=== PATIENT | female | born 1985 | race Caucasian/White ===

== ENCOUNTER 2019-04-09 22:15 | Emergency (ER) | payer BC ==
[2019-04-09] MEDS ORDERED: fentaNYL 100 MCG/2 ML SDV IM ONE (22:49)
--- NOTE | 2019-04-09 22:52 | EDM.PDOC ---
ED HPI GENERAL MEDICAL PROBLEM - General Chief Complaint: Abdominal Pain Stated Complaint: ACID REFLUX PAIN Time Seen by Provider: 04/09/19 22:43 Source of Information: Reports: Patient, RN Notes Reviewed History Limitations: Reports: No Limitations - History of Present Illness INITIAL COMMENTS - FREE TEXT/NARRATIVE: 33-year-old female presents emergency department a complaint of left upper quadrant pain, she states she had epigastric pain for the last year or so usually controlled with Carafate and omeprazole however this pain is a little different started earlier today is quite intense it is right underneath her rib cage on the left side. 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: Musculoskeletal History: Reports: Fracture, Other (See Below) Other Musculoskeletal History: right wrist fx Psychiatric History: Reports: Anxiety Dermatologic History: Reports: Psoriasis - Infectious Disease History Infectious Disease History: Reports: Chicken Pox - Past Surgical History GI Surgical History: Reports: EGD Female Surgical History: Reports: Section Social & Family History - Tobacco Use Smoking Status *Q: Never Smoker - Caffeine Use Caffeine Use: Reports: Coffee - Recreational Drug Use Recreational Drug Use: No ED ROS GENERAL - Review of Systems Review Of Systems: See Below Constitutional: Reports: No Symptoms HEENT: Reports: No Symptoms Respiratory: Reports: No Symptoms Cardiovascular: Reports: No Symptoms GI/Abdominal: Reports: Abdominal Pain, Flatus. Denies: Nausea, Vomiting : Reports: No Symptoms ED EXAM, GI/ABD - Physical Exam Exam: See Below Exam Limited By: No Limitations General Appearance: Alert, Mild Distress Respiratory/Chest: No Respiratory Distress, Lungs Clear, Normal Breath Sounds, No Accessory Muscle Use, Chest Non-Tender Cardiovascular: Regular Rate, Rhythm, No Murmur GI/Abdominal Exam: Normal Bowel Sounds, Soft, Non-Tender, No Organomegaly, No Distention, No Abnormal Bruit, No Mass Course - Vital Signs Last Recorded V/S: Last Vital Signs Temp 97.9 F 04/09/19 22:30 Pulse 65 04/09/19 22:30 Resp 16 04/09/19 22:30 BP 111/64 04/09/19 22:30 Pulse Ox 99 04/09/19 22:30 - Orders/Labs/Meds Orders: Active Orders 24 hr Category Date Time Status Abdomen 1V Upright [CR] Urgent Exams 04/09/19 22:47 Ordered UA W/MICROSCOPIC [URIN] Urgent Lab 04/09/19 22:47 Ordered Labs: Laboratory Tests 04/09/19 04/09/19 04/09/19 Range/Units 22:53 22:59 22:59 WBC 7.9 (4.5-11.0) K/uL RBC 4.74 (3.30-5.50) M/uL Hgb 14.1 (12.0-15.0) g/dL Hct 42.5 (36.0-48.0) % MCV 90 (80-98) fL MCH 30 (27-31) pg MCHC 33 (32-36) % Plt Count 201 (150-400) K/uL Neut % (Auto) 65 (36-66) % Lymph % (Auto) 25 (24-44) % Love % (Auto) 7 H (2-6) % Eos % (Auto) 3 (2-4) % Baso % (Auto) 1 (0-1) % Sodium 143 (140-148) mmol/L Potassium 3.5 L (3.6-5.2) mmol/L Chloride 107 (100-108) mmol/L Carbon Dioxide 25 (21-32) mmol/L Anion Gap 14.5 H (5.0-14.0) mmol/L BUN 16 (7-18) mg/dL Creatinine 0.9 (0.6-1.0) mg/dL Est Cr Clr Drug Dosing 74.35 mL/min Estimated GFR (MDRD) > 60 (>60) Glucose 91 (74-106) mg/dL Lactic Acid (0.4-2.0) mmol/L Calcium 8.9 (8.5-10.1) mg/dL Total Bilirubin 0.3 (0.2-1.0) mg/dL AST 17 (15-37) U/L ALT 35 (12-78) U/L Alkaline Phosphatase 63 (46-116) U/L Total Protein 7.1 (6.4-8.2) g/dL Albumin 4.0 (3.4-5.0) g/dL Globulin 3.1 (2.3-3.5) g/dL Albumin/Globulin Ratio 1.3 (1.2-2.2) Lipase 128 (73-393) U/L HCG, Qual Negative 04/09/19 Range/Units 22:59 WBC (4.5-11.0) K/uL RBC (3.30-5.50) M/uL Hgb (12.0-15.0) g/dL Hct (36.0-48.0) % MCV (80-98) fL MCH (27-31) pg MCHC (32-36) % Plt Count (150-400) K/uL Neut % (Auto) (36-66) % Lymph % (Auto) (24-44) % Love % (Auto) (2-6) % Eos % (Auto) (2-4) % Baso % (Auto) (0-1) % Sodium (140-148) mmol/L Potassium (3.6-5.2) mmol/L Chloride (100-108) mmol/L Carbon Dioxide (21-32) mmol/L Anion Gap (5.0-14.0) mmol/L BUN (7-18) mg/dL Creatinine (0.6-1.0) mg/dL Est Cr Clr Drug Dosing mL/min Estimated GFR (MDRD) (>60) Glucose (74-106) mg/dL Lactic Acid 1.0 (0.4-2.0) mmol/L Calcium (8.5-10.1) mg/dL Total Bilirubin (0.2-1.0) mg/dL AST (15-37) U/L ALT (12-78) U/L Alkaline Phosphatase (46-116) U/L Total Protein (6.4-8.2) g/dL Albumin (3.4-5.0) g/dL Globulin (2.3-3.5) g/dL Albumin/Globulin Ratio (1.2-2.2) Lipase (73-393) U/L HCG, Qual Meds: Medications Discontinued Medications Generic Name Dose Route Start Last Admin Trade Name Freq PRN Reason Stop Dose Admin Al Hydroxide/Mg Hydroxide 15 0 ml 04/09/19 23:00 04/09/19 23:28 ml/ Lidocaine HCl 15 ml PO 04/09/19 23:01 30 ml ONETIME ONE Administration Fentanyl 50 mcg 04/09/19 22:49 04/09/19 23:49 Sublimaze IM 04/09/19 22:50 50 mcg ONETIME ONE Administration Departure - Departure Time of Disposition: 00:16 Disposition: Home, Self-Care 01 Condition: Fair Clinical Impression: Functional constipation - Discharge Information Instructions: Constipation, Adult Referrals: Marco Antonio Rodgers MD [Primary Care Provider] - Forms: ED Department Discharge Additional Instructions: Try the colonoscopy prep with MiraLAX, please followup with your primary care provider in 3-5 days if not better, please call return to the emergency department with worsening of symptoms. Sepsis Event Note - Evaluation Sepsis Screening Result: No Definite Risk - Focused Exam Vital Signs: Vital Signs Temp Pulse Resp BP Pulse Ox 04/09/19 22:30 97.9 F 65 16 111/64 99 04/09/19 22:28 97.9 F 65 16 111/64 99 Date Exam was Performed: 04/10/19 Time Exam was Performed: 00:15 - My Orders Last 24 Hours: My Active Orders 04/09/19 22:47 Abdomen 1V Upright [CR] Urgent UA W/MICROSCOPIC [URIN] Urgent - Assessment/Plan Last 24 Hours: My Active Orders 04/09/19 22:47 Abdomen 1V Upright [CR] Urgent UA W/MICROSCOPIC [URIN] Urgent Plan: Assessment Acuity = acute Site and laterality = functional constipation Etiology = slow transit time Manifestations = none Location of injury = Home Lab values = CBC CMP unremarkable lipase is within normal limits plain film the abdomen does show a large amount of stool and gas Plan Plan is to do the colonoscopy prep with MiraLAX follow-up primary care 3 to 5 days if not better This note was dictated using [employer] voice recognition software please call with any questions on syntax or grammar.
[2019-04-09] MEDS ORDERED: Alum Hydrox/Mag Hydrox/Simeth 15 ML, Lidocaine 2% 15 ML PO ONE ×2 (23:00)
--- NOTE | 2019-04-11 10:10 | CR ---
Abdomen 1V Upright CLINICAL HISTORY: Abdominal pain FINDINGS: The bowel gas pattern is nonobstructive. No free air is seen. No abnormal masses are noted. There is moderate fecal retention. There is a punctate calcific density in the region of the lower pole of the right kidney. IMPRESSION: Moderate fecal retention Possible tiny right pole renal calcification .
== END 2019-04-10 00:29 | disposition home or self-care (01) ==
LOC: JP.ED 22:15
DX: K59.04 Chronic idiopathic constipation (principal); Z88.0 Allergy status to penicillin
CPT/HCPCS: 36415; 74018; 80053; 83605; 83690; 84703; 85025; 96372; 99284; A9270; J3010

== ENCOUNTER 2019-05-27 13:00 | Emergency (ER) | payer BC ==
[2019-05-27] MEDS ORDERED: Lidocaine/EPINEPHrine/Tetracaine Soln 5 ML Each TOP ONE (13:26)
[2019-05-27] MEDS ORDERED: Bacitracin Oint 1 GM U/D Packet TOP ONE (13:26)
--- NOTE | 2019-05-27 13:31 | EDM.PDOC ---
ED HPI GENERAL MEDICAL PROBLEM - General Chief Complaint: Laceration Stated Complaint: CUT L ARM/WRIST Time Seen by Provider: 05/27/19 13:20 Source of Information: Reports: Patient, Old Records, RN History Limitations: Reports: No Limitations - History of Present Illness INITIAL COMMENTS - FREE TEXT/NARRATIVE: 33 yo female here with a laceration to the anterior L wrist that occurred at home today. She was using a butter knife to scrape a butts that she was washing and it slipped lacerating her L wrist. She cleaned it up at home and then came for further evaluation and repair. She has a severe phobia of needles. She thinks her tetanus is UTD. Has venous oozing at home, no squirting of blood. 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: Musculoskeletal History: Reports: Fracture, Other (See Below) Other Musculoskeletal History: right wrist fx Psychiatric History: Reports: Anxiety Dermatologic History: Reports: Psoriasis - Infectious Disease History Infectious Disease History: Reports: Chicken Pox - Past Surgical History HEENT Surgical History: Reports: None Cardiovascular Surgical History: Reports: None GI Surgical History: Reports: EGD Female Surgical History: Reports: Section Musculoskeletal Surgical History: Reports: None Dermatological Surgical History: Reports: None Social & Family History - Family History Family Medical History: Noncontributory - Tobacco Use Smoking Status *Q: Never Smoker Second Hand Smoke Exposure: No - Caffeine Use Caffeine Use: Reports: Coffee - Recreational Drug Use Recreational Drug Use: No ED ROS GENERAL - Review of Systems Review Of Systems: See Below Constitutional: Reports: No Symptoms Skin: Reports: Wound (L anterior wrist) Neurological: Reports: No Symptoms Psychiatric: Reports: Anxiety ED EXAM, SKIN/RASH Exam: See Below Exam Limited By: No Limitations General Appearance: Alert, WD/WN, No Apparent Distress, Anxious Extremities: Normal Range of Motion, No Pedal Edema. No: Non-Tender, Pedal Edema, Limited Range of Motion, Increased Warmth Neurological: Alert, Oriented, CN II-XII Intact, Normal Cognition, No Motor/ Sensory Deficits Psychiatric: Anxious Skin: Warm, Dry, Normal Color, No Rash, Wound/Incision Location, Skin: Upper Extremity, Left Characteristics: Linear Associated features: Tenderness. No: Warmth, Swelling, Induration, Lymphangitis ED SKIN PROCEDURES - Laceration/Wound Repair Left Anterior Wrist Appearance: Subcutaneous, Linear Distal NVT: Neuro & Vascular Intact, No Tendon Injury Anesthetic Type: Topical (LET solution) Local Anesthesia - Lidocaine (Xylocaine): 1% Plain Local Anesthetic Volume: 2cc Skin Prep: Saline Saline Irrigation (cc's): 5 Exploration/Debridement/Repair: Wound Explored, Minimal Debridement Closed with: Sutures Lac/Wound length In cm: 2 Suture Size: 5-0 # of Sutures: 4 Suture Type: Nylon, Interrupted, Simple, Mattress Drain Placement: No Sterile Dressing Applied: Nurse Tetanus Status Addressed: Yes Complications: No Course - Vital Signs Last Recorded V/S: Last Vital Signs Temp 36.5 C 05/27/19 13:12 Pulse 77 05/27/19 13:12 Resp 20 05/27/19 13:12 BP 149/55 H 05/27/19 13:12 Pulse Ox 96 05/27/19 13:12 - Orders/Labs/Meds Meds: Medications Discontinued Medications Generic Name Dose Route Start Last Admin Trade Name Vishal PRN Reason Stop Dose Admin Alprazolam 0.25 mg 05/27/19 14:01 05/27/19 14:08 Xanax PO 05/27/19 14:02 0.25 mg NOW ONE Administration Bacitracin 1 dose 05/27/19 13:26 05/27/19 13:35 Bacitracin Oint 1 Gm TOP 05/27/19 13:27 1 dose ONETIME ONE Administration Lidocaine HCl 5 ml 05/27/19 14:24 Xylocaine-Mpf 1% INJECT 05/27/19 14:25 ONETIME ONE Lidocaine/Tetracaine 5 ml 05/27/19 13:26 05/27/19 13:34 Let Soln TOP 05/27/19 13:27 5 ml ONETIME ONE Administration Departure - Departure Time of Disposition: 14:50 Disposition: Home, Self-Care 01 Condition: Good Clinical Impression: Laceration of wrist, left Qualifiers: Encounter type: initial encounter Qualified Code(s): S61.512A - Laceration without foreign body of left wrist, initial encounter - Discharge Information *PRESCRIPTION DRUG MONITORING PROGRAM REVIEWED*: Not Applicable *COPY OF PRESCRIPTION DRUG MONITORING REPORT IN PATIENT MISAEL: Not Applicable Instructions: Laceration Care, Adult, [id number] Referrals: PCP,None [Primary Care Provider] - Forms: ED Department Discharge Additional Instructions: Clean wound twice daily with soap and water. Dry. Apply antibiotic ointment and a new dressing. Stitches out in 7 days with your provider, return or be seen in the clinic sooner for signs of infection. You may use acetaminophen as needed for pain relief. Keep wound clean for 3 days. Sepsis Event Note - Evaluation Sepsis Screening Result: No Definite Risk - Focused Exam Vital Signs: Vital Signs Temp Pulse Resp BP Pulse Ox 05/27/19 13:12 36.5 C 77 20 149/55 H 96 Date Exam was Performed: 05/27/19 Time Exam was Performed: 14:40
[2019-05-27] MEDS ORDERED: ALPRAZolam 0.25 MG Tab PO ONE (14:01)
== END 2019-05-27 14:54 | disposition home or self-care (01) ==
LOC: JP.ED 13:00
DX: S61.512A Laceration without foreign body of left wrist, initial encounter (principal); F41.9 Anxiety disorder, unspecified; Z88.0 Allergy status to penicillin; W26.0XXA Contact with knife, initial encounter; Y92.009 Unspecified place in unspecified non-institutional (private) residence as the place of occurrence of the external cause
CPT/HCPCS: 12001; 99282; A9270